=== PATIENT | female | born 1960 | race Caucasian/White ===

== ENCOUNTER 2017-11-27 08:34 | Day surgery (SDC) | payer OTHER ==
[2017-11-27] MEDS ORDERED: LR 1,000 ML IV ONE (08:58)
[2017-11-27] MEDS ORDERED: LIDOCAINE 1% 2 ML INJ ID PRN (08:58)
--- NOTE | 2017-11-27 09:46 | PDGENHP ---
History & Physical Chief Complaint: Surveillance of colon polyps History of Present Illness: Personal history of colon polyps. Diverticulitis in July 2017 Pertinent Past, Social, Family History: No FH of colon cancer. No tobacco. No ETOH. No prior anesthesia problems Relevant Physical Exam: NAD. CTA B/L. RRR without m/r/g. ABD soft. NABS. NT/ ND. Cardiorespiratory Assessment: ASA II. Colonscopy with MAC
[2017-11-27] MEDS ORDERED: PROPOFOL 200 MG/20 ML VIAL ONE ×2 (09:49→10:02)
[2017-11-27] MEDS ORDERED: LIDOCAINE 2% 2 ML INJ ONE (09:52)
--- NOTE | 2017-11-27 09:56 | PDANEPAE ---
ANE History of Present Illness colonoscopy ANE Past Medical History - Cardiovascular History Hx Hypertension: No Hx Arrhythmias: No Hx Chest Pain: No Hx Coronary Artery / Peripheral Vascular Disease: No Hx CHF / Valvular Disease: No Hx Palpitations: No - Pulmonary History Hx COPD: No Hx Asthma/Reactive Airway Disease: No Hx Recent Upper Respiratory Infection: No Hx Oxygen in Use at Home: No Hx Sleep Apnea: No Sleep Apnea Screening Result - Last Documented: Positive - Neurologic History Hx Cerebrovascular Accident: No Hx Seizures: No Hx Dementia: No - Endocrine History Hx Diabetes: No - Renal History Hx Renal Disorders: No - Liver History Hx Hepatic Disorders: No Hepatic History Comment: TAINA - Neurological & Psychiatric Hx Hx Neurological and Psychiatric Disorders: No - Cancer History Hx Cancer: No - Congenital Disorder History Hx Congenital Disorders: No - GI History Hx Gastrointestinal Disorders: Yes Gastrointestinal History Comment: DIVERTICULITIS - Other Health History Other Health History: NONE - Chronic Pain History Chronic Pain: No - Surgical History Prior Surgeries: COLONOSCOPY. CHOLECYSTECTOMY ANE Review of Systems Review of systems is: negative Review of Systems: - Exercise capacity METS (RN): 5 METS ANE Patient History - Allergies Allergies/Adverse Reactions: No Known Allergies Allergy (Verified 11/25/17 15:14) - Home Medications Home medications: home medication list seen and reviewed Home Medications: Probiotic 07/08/17 [Last Taken 11/26/17] Herbals/Supplements -Info Only 11/25/17 [Last Taken 11/23/17] - NPO status NPO Since - Liquids (Date): 11/26/17 NPO Since - Liquids (Time): 20:00 NPO Since - Solids (Date): 11/26/17 NPO Since - Solids (Time): 08:00 - Anes Hx Anes Hx: no prior problems - Smoking Hx Smoking Status: Former smoker - Family Anes Hx Family Hx Anesthesia Complications: NEG ANE Labs/Vital Signs - Vital Signs Blood Pressure: 144/82 Heart Rate: 67 Respiratory Rate: 16 O2 Sat (%): 93 Height: 163.83 cm Weight: 90.718 kg ANE Physical Exam - Airway Neck exam: FROM Mallampati Score: Class 2 Mouth exam: normal dental/mouth exam - Pulmonary Pulmonary: no respiratory distress - Cardiovascular Cardiovascular: regular rate and rhythym - ASA Status ASA Status: II ANE Anesthesia Plan Anesthesia Plan: GA w LMA Urgent/Emergent Case: Patricia concepcion completed preop but documented later for safe timely pt care
[2017-11-27] MEDS ORDERED: oxyCODONE IR 5 MG TAB PO PRN (10:05)
[2017-11-27] MEDS ORDERED: ONDANSETRON 4 MG/2 ML VIAL IVP PRN (10:05)
[2017-11-27] MEDS ORDERED: METOCLOPRAMIDE 10 MG/2 ML VIAL IVP PRN (10:05)
[2017-11-27] MEDS ORDERED: ACETAMINOPHEN 500 MG TAB PO PRN (10:05)
[2017-11-27] MEDS ORDERED: NALOXONE HCL 0.4 MG/ML INJ IVP PRN (10:05)
[2017-11-27] MEDS ORDERED: fentaNYL 100 MCG/2 ML INJ IVP PRN (10:05)
[2017-11-27] MEDS ORDERED: ALBUTEROL 3 ML DEYVIAL IH PRN (10:05)
[2017-11-27] MEDS ORDERED: LR 500 ML IV PRN (10:05)
[2017-11-27] MEDS ORDERED: HYDROCODONE/APAP 5/325 TAB PO PRN (10:05)
--- NOTE | 2017-11-27 10:05 | POSTANESTH ---
Post Anesthetic Evaluation Cardiovascular Status: Normal, Stable Respiratory Status: Normal, Stable Level of Consciousness/Mental Status: Can Participate in Eval Pain Control: Adequate, Prn Tx Ordered Nausea/Vomiting Control: Adequate, Prn Tx Ordered Complications Possibly Related to Anesthesia: None Noted
[2017-11-27 11:35] VITALS: BP 134/83
--- NOTE | 2017-11-28 11:09 | GIREPORT ---
[facility] Surgical Services - Endoscopy Department Patient Name: Rae Land Procedure Date: 11/27/2017 9:47 AM Patient Type: Outpatient Attending MD/ ER Physician: James Nash MD Procedure: Colonoscopy Indications: High risk colon cancer surveillance: Personal history of colonic polyps Providers: James Nash MD Medicines: Propofol per Anesthesia Complications: No immediate complications. Description of Procedure: After obtaining informed consent, the scope was passed under direct vis ion. Throughout the procedure, the patient's blood pressure, pulse, and oxyg en saturations were monitored continuously. The Colonoscope with irrigatio n channel was introduced through the anus and advanced to the cecum, identified by appendiceal orifice and ileocecal valve. The colonoscopy was performed without difficulty. The patient tolerated the procedure well. The quality of the bowel preparation was excellent. The ileocecal valve, appendiceal orifice, and rectum were photographed. Findings: The perianal and digital rectal examinations were normal. Pertinent negatives include normal sphincter tone and no palpable rectal lesions. A 7 mm polyp was found in the transverse colon. The polyp was sessile. The polyp was removed with a cold snare. Resection and retrieval were compl ete. Multiple small-mouthed diverticula were found in the sigmoid colon. Estimated Blood Loss: Estimated blood loss: none. Post Op Diagnosis: - One 7 mm polyp in the transverse colon, removed with a cold snare. Resected and retrieved. - Diverticulosis in the sigmoid colon. Recommendation: - Await pathology results. - Repeat colonoscopy in 5 years for surveillance. This can be scheduled in the ambulatory endoscopy center. She would do well with conscious sedat ion. - Resume previous diet. - Continue present medications. - Patient has a contact number available for emergencies. The signs and symptoms of potential delayed complications were discussed with the pat ient. Return to normal activities tomorrow. Written discharge instructions we re provided to the patient. - Thank you for allowing me to be involved in the care of your patient. Attending Participation: I personally performed the entire procedure without the assistance of a fellow, resident or surg ical mortgage loan assistant. James Nash MD James Nash MD 11/27/2017 10:20:13 AM This report has been signed electronicallyDavid MD Charity Number of Addenda: 0 Note Initiated On: 11/27/2017 9:47 AM Total Procedure Duration Time 0 hours 12 minutes 57 seconds [email or web address]
== END 2017-11-27 11:48 | disposition home or self-care (01) ==
LOC: FSGY 08:34
PROVIDERS: ATTEND Internal Medicine Gastroenterology
PROC: 0DBL8ZX Excision of Transverse Colon, Via Natural or Artificial Opening Endoscopic, Diagnostic (ICD-10-PCS; principal; 2017-11-27 10:15)
DX: D12.3 Benign neoplasm of transverse colon (principal); K57.30 Diverticulosis of large intestine without perforation or abscess without bleeding; Z86.010 Personal history of colon polyps
CPT/HCPCS: J2704